=== PATIENT | female | born 1945 | race Caucasian/White ===

== ENCOUNTER 2018-06-07 12:23 | Emergency (ER) | payer MEDICARE ==
--- NOTE | 2018-06-07 13:39 | RAD ---
3 VIEWS LEFT INDEX FINGER: Date: 06/07/18 COMPARISON: None. HISTORY: Left index finger was slammed in a car door, with pain and swelling. FINDINGS: Three views of the left index finger show a laceration along the middle phalanx. No underlying fractu re is seen. No dislocation is seen. No radiopaque foreign body is seen. IMPRESSION: No evidence of acute osseous abnormality. POS: [facility]
[2018-06-07] MEDS ORDERED: Lidocaine 1% MPF 2 ML VIAL ONE (14:06)
[2018-06-07] MEDS ORDERED: Bacitracin Zinc Ointment 30 gm TUBE ONE (14:37)
[2018-06-07] MEDS ORDERED: Bacitracin Zinc 1 Packet ONE (14:38)
== END 2018-06-07 14:53 | disposition home or self-care (01) ==
LOC: SCSER 12:23
DX: S67.191A Crushing injury of left index finger, initial encounter (principal); S61.211A Laceration without foreign body of left index finger without damage to nail, initial encounter; Z87.891 Personal history of nicotine dependence; Z79.899 Other long term (current) drug therapy; W22.8XXA Striking against or struck by other objects, initial encounter
CPT/HCPCS: 12002

== ENCOUNTER 2018-06-18 12:44 | Outpatient (CLI) | payer MEDICARE | END 2018-06-18 12:45 | disposition home or self-care (01) | LOC: BICMAMMO 12:44 | PROVIDERS: ATTEND Obstetrics & Gynecology | DX: Z12.31 Encounter for screening mammogram for malignant neoplasm of breast (principal) | CPT/HCPCS: 77063; 77067 ==